=== PATIENT | female | born 1985 | race Caucasian/White ===

== ENCOUNTER 2020-07-31 15:03 | Emergency (ER) | payer OTHER, SELFPAY ==
[2020-07-31 15:05] VITALS: PULSE 107; RESP 18; TEMP 35.7; O2SAT 95; BMI 47.0
--- NOTE | 2020-07-31 15:21 | ED.DCSUM_ITS ---
History of Present Illness Chief Complaint: Shortness of Breath Informant: Patient Narrative: 34-year-old female presenting with shortness of breath. She states she had Covid?19 around and recovered. Over the last couple days she has felt more short of breath when ambulating. She feels more short of breath when she climbs stairs. She denies any chest pain. She was seen as an urgent care televisit but was unable to get a chest x-ray yesterday. Outpatient imaging is closed today. She was referred to the ER for rule out of pneumonia. Patient has no history of DVT/PE. She has no leg pains or calf swelling. She has not had a fever but admits to chills and sweats. No change in taste or smell. Past Medical History - Allergies and Home Meds Allergies/Adverse Reactions: Allergies acetaminophen [From Percocet] Adverse Reaction (Verified 07/31/20 15:04) NEEDS FOLLOW-UP oxycodone [From Percocet] Adverse Reaction (Verified 07/31/20 15:04) NEEDS FOLLOW-UP Penicillins Adverse Reaction (Verified 07/31/20 15:04) NEEDS FOLLOW-UP Tetracyclines Adverse Reaction (Verified 07/31/20 15:04) NEEDS FOLLOW-UP Primary Care Physician: [facility] Doctor,Out of [NON-STAFF] - Prior records reviewed: Yes Past Medical History: - - History of Covid?19 Surgical History: noncontributory Lives: Alone Smoking Status: Unknown if ever smoked Alcohol: None Drugs: None Review of Systems General: Reports: Chills, Sweats. Denies: Malaise Eyes: Denies: Visual changes - bilaterally, Diplopia ENT: Denies: Rhinorrhea, Sore throat Cardiovascular: Denies: Chest pain, Palpitations Respiratory: Reports: Dyspnea, Cough, Dyspnea on exertion Gastrointestinal: Denies: Abdominal pain, Nausea, Vomiting, Diarrhea, Melena, Hematochezia Genitourinary: Denies: Dysuria, Hematuria, Frequency Musculoskeletal: Denies: Back pain, Extremity Pain Skin: Denies: Rash, Wounds Neurological: Denies: Headache, Weakness, Numbness Psych: Denies: Depression, Anxiety Physical Exam Vital Signs/Narrative: Vital Signs Temp Pulse Resp Pulse Ox 07/31/20 15:05 96.3 F L 107 H 18 95 Inital Vital Signs reviewed: Yes General: Well nourished, Well developed, No Acute Distress Head: Normocephalic, Atraumatic Eyes: Perrl, EOMI ENT: Moist mucous membranes, No rhinorrhea Cardiovascular: Regular rhythm, Tachycardia Respiratory: No distress, CTA bilaterally Skin: Normal color, No rash. Negative for: Cyanosis, Diaphoresis Neurological: Alert, Oriented x3, Cranial nerves II-XII grossly intact Psychological: Normal affect, Normal Mood Diagnostic/Tx/Re-eval - Rhythm Strip Rhythm Strip: Sinus Rhythm Rate: 96 - EKG Follow-up EKG Interpretation: Sinus Rhythm, No Acute Injury Pattern - Medical Decision Making 34-year-old female status post Covid?19 infection almost 2 months ago presents with shortness of breath. She was concerned for pneumonia and was sent here by urgent care. Patient's EKG performed on arrival and interpreted by myself shows a sinus rhythm without signs of ischemic change. Chest x-ray as interpreted by myself and agreed with by radiology shows no acute process. Lab work is unremarkable. D-dimer is negative. Opponent is negative. Patient's vital signs are stable and she is afebrile. She is nontoxic-appearing. I think at this time she is safe to be discharged home to follow-up with her regular physician. Patient was started on doxycycline and I did encourage her to finish this as there could possibly be an occult pneumonia. She was amenable to this plan. She be discharged home in stable condition. Impression: 1. Dyspnea ED Disposition - Plan for ED Patient: Disposition: Home or Assisted Living Instructions: ED Dyspnea Referrals: [facility] Doctor,Out of [NON-STAFF] -
--- NOTE | 2020-07-31 15:41 | EKG12_ITS ---
Test Reason : SOB Blood Pressure : / mmHG Vent. Rate : 096 BPM Atrial Rate : 096 BPM P-R Int : 162 ms QRS Dur : 090 ms QT Int : 354 ms P-R-T Axes : 066 030 070 degrees QTc Int : 447 ms Normal sinus rhythm Nonspecific T wave abnormality Abnormal ECG Confirmed by MILENA GONZALEZ, KETTY ([id number]), offline editor BOLIVAR JIMENEZ ([id number]) on 08/03/2020 6:54:34 AM Referred By: ARNALDO Confirmed By:KETTY ABBOTT MD
--- NOTE | 2020-07-31 15:53 | ED.RN ---
UNABLE TO OBTAIN BP IN TRIAGE. CUFF CHANGED. PT REPORTS WANTING TO WAIT A BIT BEFORE OBTAINING BP.
[2020-07-31 16:06] LABS: Absolute Lymphocyte Count 3.37 X10^3/uL (0.83-4.51); Absolute Neutrophil Count 5.3 X10^3/uL (2.0-7.7); Basophil# 0.05 X10^3/uL; Basophil% 0.5 % (0-1); Eosinophil# 0.29 X10^3/uL; Hematocrit 39.6 % (37-47); Hemoglobin 13.3 g/dL (12.0-15.0); Lymphocyte # 3.37 X10^3/ul (4.0); Lymphocyte % 35.1 % (19-41); Mean Corp Hgb Conc 33.6 g/dL (32-36); Mean Corpuscular Volume 89.2 fL (81-99); Mean Platelet Vol. 9.5 fl (6.2-12.0); Monocyte# 0.48 X10^3/uL; NRBC Flagged by Analyzer 0 % (0-5); Neutrophil # 5.33 X10^3/uL (2.7-7.7); Neutrophil % 55.6 % (47-70); Platelet Count 322 K/mm3 (150-450); RBC Distribution Width CV 12.9 % (11.6-14.6); RBC Distribution Width SD 41.9 fl (35.1-43.9); Red Blood Count 4.44 M/mm3 (4.2-5.4); White Blood Count 9.6 K/mm3 (4.4-11.0)
[2020-07-31 16:16] VITALS: BP 153/100; PULSE 97; RESP 20; O2SAT 96
[2020-07-31 16:22] LABS: Anion Gap 6 (5-15); BUN 12 mg/dL (7-18); BUN/Creat Ratio 13.8 RATIO (10-20); Calcium,Total 8.9 mg/dL (8.5-10.1); Chloride 111 mmol/L (98-107); Creatinine, Serum 0.87 mg/dL (0.55-1.02); EST Glomerular Filtration Rate 78 mL/min (>60); Est Glom Filt Rate - Afr Amer 95 mL/min (>60); Estimated Creatinine Clearance 87.77 ml/min; Glucose 120 mg/dL (74-106); Potassium 3.7 mmol/L (3.5-5.1); Sodium Level 143 mmol/L (136-145)
--- NOTE | 2020-07-31 16:34 | RAD_ITS ---
STUDY: X-RAY CHEST REASON FOR EXAM: Female, 34 years old. PT WITH SOB, COUGH, HEADACHE, SORE THROAT. TECHNIQUE: AP COMPARISON: None. FINDINGS: EKG leads project over the chest. The lungs are clear and expanded. There is no demonstrated pleural abnormality. Normal size heart. Normal mediastinum and andressa. Normal visualized pulmonary arteries. Normal visualized aortic arch and descending thoracic aorta. Normal visualized thoracic spine. Normal visualized ribs, clavicles, and shoulders. There is no demonstrated abnormality of the visualized soft tissue structures of the upper abdomen. RAD/Chest 1 View (Portable) IMPRESSION: Nonacute portable x-ray examination of the chest. Electronically Signed: Tor Chan MD (Brooks) at 16:54 EST , Service support ,
[2020-07-31 16:45] LABS: D-Dimer Quantitative (DVT/PE) 0.35 FEU/ug/m (0.27-0.49)
[2020-07-31 17:57] VITALS: BP 162/104; PULSE 100; RESP 20
== END 2020-07-31 17:58 | disposition home or self-care (01) ==
PROVIDERS: Emergency Provider Student in an Organized Health Care Education/Training Program
DX: R06.09 Other forms of dyspnea (principal); Z79.899 Other long term (current) drug therapy; Z86.16 Personal history of COVID-19
CPT/HCPCS: 71045; 80048; 84484; 85025; 85379; 93005; 99284; A4216

== ENCOUNTER 2021-02-10 13:04 | Emergency (ER) | payer OTHER, SELFPAY ==
[2021-02-10 13:05] VITALS: BP 180/127; PULSE 119; RESP 20; TEMP 36.6; O2SAT 96; BMI 49.4
--- NOTE | 2021-02-10 13:39 | EKG12_ITS ---
Test Reason : RASH Blood Pressure : / mmHG Vent. Rate : 099 BPM Atrial Rate : 099 BPM P-R Int : 170 ms QRS Dur : 092 ms QT Int : 360 ms P-R-T Axes : 057 015 054 degrees QTc Int : 462 ms Normal sinus rhythm Nonspecific T wave abnormality Abnormal ECG Confirmed by YASSINE GONZALEZ, ALDEN ([id number]), food expeditor ANDREW SHIELDS ([id number]) on 02/16/2021 1:14:13 PM Referred By: JEROME Confirmed By:ALDEN METZGER MD
[2021-02-10] MEDS: Ketorolac 30 MG/ML Syringe IV (14:07)
[2021-02-10 14:23] LABS: Absolute Lymphocyte Count 2.83 X10^3/uL (0.83-4.51); Absolute Neutrophil Count 6.5 X10^3/uL (2.0-7.7); Basophil# 0.04 X10^3/uL; Basophil% 0.4 % (0-1); Eosinophil# 0.28 X10^3/uL; Eosinophils% 2.7 % (0-5); Hematocrit 40.8 % (37-47); Hemoglobin 13.5 g/dL (12.0-15.0); Lymphocyte # 2.83 X10^3/ul (0.83-4.51); Lymphocyte % 27.7 % (19-41); Mean Corp Hgb Conc 33.1 g/dL (32-36); Mean Corpuscular Hgb 29.6 pg (27.0-32.0); Mean Corpuscular Volume 89.5 fL (81-99); Mean Platelet Vol. 9.6 fl (6.2-12.0); Monocyte# 0.44 X10^3/uL; Monocyte% 4.3 % (0-10); NRBC Flagged by Analyzer 0 % (0-5); Neutrophil # 6.54 X10^3/uL (2.7-7.7); Platelet Count 305 K/mm3 (150-450); RBC Distribution Width CV 12.6 % (11.6-14.6); RBC Distribution Width SD 41.3 fl (35.1-43.9); Red Blood Count 4.56 M/mm3 (4.2-5.4); White Blood Count 10.2 K/mm3 (4.4-11.0)
[2021-02-10 14:46] LABS: AST(SGOT) 21 U/L (15-37); Alanine Aminotransfer ALT/SGPT 32 U/L (13-56); Albumin, Serum 3.4 g/dL (3.2-5.0); Alkaline Phosphatase 100 U/L (45-117); Anion Gap 6 (5-15); BUN 15 mg/dL (7-18); BUN/Creat Ratio 15.9 RATIO (10-20); Calcium,Total 9.3 mg/dL (8.5-10.1); Chloride 104 mmol/L (98-107); Creatinine, Serum 0.94 mg/dL (0.55-1.02); EST Glomerular Filtration Rate 71 mL/min (>60); Est Glom Filt Rate - Afr Amer 86 mL/min (>60); Estimated Creatinine Clearance 83.46 ml/min; Globulin 4.2 g/dL (2.2-4.2); Glucose 120 mg/dL (74-106); Potassium 3.7 mmol/L (3.5-5.1); Protein, Total 7.6 g/dL (6.4-8.2); Sodium Level 137 mmol/L (136-145); Thyroid Stim Hormone (TSH) 1.81 uIU/mL (0.358-3.74)
[2021-02-10 15:08] VITALS: BP 125/77; PULSE 89; RESP 18; O2SAT 97
--- NOTE | 2021-02-10 15:08 | EX.ED.DYSGE1 ---
HPI History of Present Illness Chief Complaint: Rash Detail of Chief Complaint: Diffuse joint pain, rash Informant: patient Onset/Context/Timing Onset: Days Context: Gradual Onset Current Severity: Moderate Maximum Severity: Moderate Narrative Narrative: Patient presents secondary to diffuse joint pain. Patient states that 4 days ago she developed joint pain throughout her body and she has been itching all over. She also reports a loss of balance the last couple days. She states this is typically when she bends over she will lose her balance. Patient has already been on Mobic and added Tylenol to help with pain. Patient started a new medication, Cogentin, yesterday. She states today while sitting and visiting with family she developed a facial rash. The rash is currently improved but she states she still has some facial tingling. She also had brown emesis this morning. Patient does report having Covid in May. She does note that her blood pressure and heart rate are elevated today. [facility] Medical History Anxiety Depression Eating disorder Gastritis IBS (irritable bowel syndrome) PTSD (post-traumatic stress disorder) Home Medications L.acidoph, paracasei,B. lactis 2 cap PO QHS 07/31/20 [History Last Taken Unknown] biotin 5,000 mcg PO DAILY 07/31/20 [History Last Taken Unknown] cholecalciferol (vitamin D3) 2,000 unit PO DAILY 07/31/20 [History Last Taken Unknown] clonazepam 1 mg PO 4X/DAY 07/31/20 [History Last Taken Unknown] d-mannose (bulk) 500 mg PO DAILY 07/31/20 [History Last Taken Unknown] famotidine 20 mg PO BID 07/31/20 [History Last Taken Unknown] fish oil-dha-epa 1 ea PO DAILY 07/31/20 [History Last Taken Unknown] levocetirizine 5 mg PO QHS 07/31/20 [History Last Taken Unknown] lurasidone 100 mg PO QHS 07/31/20 [History Last Taken Unknown] meloxicam 15 mg PO DAILY 07/31/20 [History Last Taken Unknown] modafinil 200 mg PO DAILY 07/31/20 [History Last Taken Unknown] norethindrone-e.estradiol-iron 1 ea PO DAILY 07/31/20 [History Last Taken Unknown] pantoprazole 40 mg PO DAILY 07/31/20 [History Last Taken Unknown] trazodone 150 mg PO QHS 07/31/20 [History Last Taken Unknown] vortioxetine 20 mg PO DAILY 07/31/20 [History Last Taken Unknown] aripiprazole mg 02/10/21 [History Last Taken Unknown] prednisone 60 mg PO DAILY #12 tab 02/10/21 [Rx Last Taken Unknown] Allergy/AdvReac Type Severity Reaction Status Date / Time acetaminophen [From Percocet] AdvReac NEEDS Verified 02/10/21 13:07 FOLLOW-UP oxycodone [From Percocet] AdvReac NEEDS Verified 02/10/21 13:07 FOLLOW-UP Penicillins AdvReac NEEDS Verified 02/10/21 13:07 FOLLOW-UP Tetracyclines AdvReac NEEDS Verified 02/10/21 13:07 FOLLOW-UP Surgical History H/O partial thyroidectomy Social History Smoking Status: Never smoker ROS ROS ED Constitutional Constitutional ED: Denies chills or fever(s) Eyes Eyes: Denies change in vision ENT ENT ED: Denies sore throat Cardiovascular Cardiovascular: Denies chest pain Respiratory/Chest Respiratory/Chest: Denies cough or dyspnea Gastrointestinal Gastrointestinal: Reports vomiting; Denies abdominal pain, diarrhea or nausea Genitourinary Genitourinary ED: Denies dysuria Musculoskeletal Musculoskeletal: Reports arthralgias; Denies back pain Integumentary Reports rash Neurologic Neurologic: Denies headache(s) or weakness Psychiatric Psychiatric: Denies anxiety or depression Endocrine Endocrinology: Denies polydipsia or polyuria Allergic/Immunologic Allergic/Immunologic ED: Denies urticaria EXAM Physical Exam Const Vital Signs: 02/10/21 13:05 02/10/21 15:08 Temperature 97.9 F Temperature Source Temporal Pulse Rate 119 H 89 Respiratory Rate 20 H 18 Blood Pressure 180/127 H 125/77 H Blood Pressure Mean 144 93 Pulse Ox 96 97 Oxygen Delivery Method Room Air Room Air Positive well nourished and well developed General Appearance ED: well developed HEENT Reports normocephalic and head/scalp atraumatic Eyes PERRL and EOMs intact bilaterally Neck supple Chest Wall inspection of chest normal and palpation of chest normal Resp normal respiratory effort and clear to auscultation bilaterally Cardio regular rate and regular rhythm GI normal to inspection, nondistended, normoactive bowel sounds Palpation: soft Extremity normal to inspection Extremity Narrative: No focal joint tenderness or excessive warmth. Neuro oriented x3 and no sensory deficits noted Sensorium / Orientation: alert Motor Exam: strength 5/5 throughout Psych mental status grossly normal Skin no rashes or lesions noted MDM MDM MDM Narrative Medical decision making narrative: Patient was given a dose of Toradol. Labs and EKG are obtained. Lab Data Attestation: I reviewed the patient's lab results. Labs: Laboratory Results - last 24 hr 02/10/21 02/10/21 14:10 14:10 WBC 10.2 RBC 4.56 Hgb 13.5 Hct 40.8 MCV 89.5 MCH 29.6 MCHC 33.1 RDW Std Deviation 41.3 RDW Coeff of Jose 12.6 Plt Count 305 MPV 9.6 Immature Gran % (Auto) 0.900 Neut % (Auto) 64.0 Lymph % (Auto) 27.7 Bollinger % (Auto) 4.3 Eos % (Auto) 2.7 Baso % (Auto) 0.4 Absolute Neuts (auto) 6.5 Absolute Lymphs (auto) 2.83 Nucleated RBC % 0 Sodium 137 Potassium 3.7 Chloride 104 Carbon Dioxide 27.0 Anion Gap 6 BUN 15 Creatinine 0.94 Estim Creat Clear Calc 83.46 Est GFR (MDRD) Af Amer 86 Est GFR (MDRD) Non-Af 71 BUN/Creatinine Ratio 15.9 Glucose 120 H Calcium 9.3 Total Bilirubin 0.30 Direct Bilirubin 0.10 AST 21 ALT 32 Alkaline Phosphatase 100 Total Protein 7.6 Albumin 3.4 Globulin 4.2 TSH 1.81 EKG Initial EKG: Attestation: I personally reviewed and interpreted this EKG as follows: Interpretation: Sinus Rhythm (Sinus at 99 with lateral T wave flattening. No ST change. Study is similar to prior from July 2020.) Treatment and Re-Evaluation Comments:: On repeat evaluation patient reports no significant improvement with Toradol. Repeat vital signs are significantly improved. Test results are discussed with the patient. We will treat her with a burst of steroids to help with the arthralgias. I did advise she contact the physician who ordered her Cogentin and not take this medication until she speaks with them. Discharge Plan Triage Chief Complaint: Rash ED Provider: Whitley Recinos Dx/Rx/DC Orders Clinical Impression: Arthralgia Instructions: ED Arthralgia Prescriptions: New prednisone 20 mg tablet 60 mg PO DAILY Qty: 12 RF: 0 No Action trazodone 50 MG tablet 150 mg PO QHS RF: 0 meloxicam 15 MG tablet 15 mg PO DAILY RF: 0 clonazepam 1 MG tablet 1 mg PO 4X/DAY RF: 0 famotidine 20 MG tablet 20 mg PO BID RF: 0 modafinil 200 MG tablet 200 mg PO DAILY RF: 0 pantoprazole 40 MG tablet 40 mg PO DAILY RF: 0 fish oil-dha-epa 1 EACH capsule 1 ea PO DAILY RF: 0 levocetirizine 5 MG tablet 5 mg PO QHS RF: 0 d-mannose (bulk) 1 GM powder 500 mg PO DAILY RF: 0 cholecalciferol (vitamin D3) 2,000 UNIT capsule 2,000 unit PO DAILY RF: 0 lurasidone 40 MG tablet 100 mg PO QHS RF: 0 norethindrone-e.estradiol-iron 1 EACH tablet,chewable 1 ea PO DAILY RF: 0 vortioxetine 20 MG tablet 20 mg PO DAILY RF: 0 L.acidoph, paracasei,B. lactis 1 EACH capsule 2 cap PO QHS RF: 0 biotin 5,000 MCG tablet,disintegrating 5,000 mcg PO DAILY RF: 0 aripiprazole 2 mg tablet RF: 0 Referrals: ALAN COBB [Other] Activity Restrictions/Additional Instructions: As discussed, please call the doctor who prescribed her Cogentin and relay what happened today. Your vital signs have returned to normal. Lab work is unremarkable. We will place you on a steroid burst to calm down inflammation causing her joint pain. Disposition Disposition: Home, Self Care Discharge Date/Time: 02/10/21 15:21
[2021-02-10] MEDS: predniSONE 20 MG Tablet 60 MG PO (15:18)
== END 2021-02-10 15:21 | disposition home or self-care (01) ==
PROVIDERS: Emergency Provider Emergency Medicine
DX: M25.50 Pain in unspecified joint (principal); R21 Rash and other nonspecific skin eruption; R26.89 Other abnormalities of gait and mobility; R20.2 Paresthesia of skin; K58.9 Irritable bowel syndrome, unspecified; F32.9 Major depressive disorder, single episode, unspecified; F43.10 Post-traumatic stress disorder, unspecified; Z79.1 Long term (current) use of non-steroidal anti-inflammatories (NSAID); Z79.52 Long term (current) use of systemic steroids; Z79.899 Other long term (current) drug therapy; Z86.16 Personal history of COVID-19
CPT/HCPCS: 80048; 80076; 84443; 85025; 93005; 96374; 99283; A4216

== ENCOUNTER 2023-11-21 11:48 | Emergency (ER) | payer OTHER, SELFPAY ==
[2023-11-21 11:48] VITALS: BP 147/94; PULSE 95; RESP 22; TEMP 36.1; O2SAT 92
[2023-11-21 12:43] VITALS: BMI 75.9
--- NOTE | 2023-11-21 12:53 | EDS_ITS ---
HPI History of Present Illness Chief Complaint: Neuro S/Sx Narrative Narrative: 38-year-old female presenting for evaluation. She states she works for [employer] and is in intensive outpatient therapy which she sees a nurse practitioner for regularly. She states that on Saturday she had her Trintellix increased from 5 to 10 mg in the morning. She states that on Saturday her Abilify was changed from 5 mg daily to 5 mg twice daily and trazodone was added to her sleep regimen 25 mg at night. She states that 1 time she took 50 mg of trazodone and slept for 24 hours. Patient states her primary care provider also changed her Neurontin last week and she went from 300 in the morning, afternoon, evening to 300 in the morning, 400 in the afternoon and 400 in the evening. Saturday and Saturday she slept most of the day and she was out of it. She was slurring per her mother who is an RN. She did not have any other deficits. Her mother felt like she was overmedicated. When she was speaking to her nurse practitioner again she stated that she needed to come to the ER for a TIA rule out given her symptoms. The patient herself states that she is very sensitive to medication changes and does not feel she had a TIA but she is not allowed to not follow instructions in the IOP otherwise she will be immediately kicked out of it. She also states she had lab work done this week already which was unremarkable. She went back to her old medication regimen yesterday and now her symptoms are improved. [facility] Medical History Anxiety Depression Eating disorder Gastritis IBS (irritable bowel syndrome) PTSD (post-traumatic stress disorder) Home Medications L.acidoph, paracasei,B. lactis 10 billion cell capsule 2 cap PO QHS 07/31/20 [History Last Taken Unknown] biotin 5,000 mcg disintegrating tablet 5,000 mcg PO DAILY 07/31/20 [History Last Taken Unknown] cholecalciferol (vitamin D3) 50 mcg (2,000 unit) capsule 2,000 unit PO DAILY 07/31/20 [History Last Taken Unknown] clonazepam 1 mg tablet 1 mg PO 4X/DAY 07/31/20 [History Last Taken Unknown] d-mannose (bulk) 99 % powder 500 mg PO DAILY 07/31/20 [History Last Taken Unknown] famotidine 20 mg tablet 20 mg PO BID 07/31/20 [History Last Taken Unknown] fish oil-dha-epa 1,200 mg-144 mg-216 mg capsule 1 ea PO DAILY 07/31/20 [History Last Taken Unknown] levocetirizine 5 mg tablet 5 mg PO QHS 07/31/20 [History Last Taken Unknown] lurasidone 40 mg tablet 100 mg PO QHS 07/31/20 [History Last Taken Unknown] meloxicam 15 mg tablet 15 mg PO DAILY 07/31/20 [History Last Taken Unknown] modafinil 200 mg tablet 200 mg PO DAILY 07/31/20 [History Last Taken Unknown] norethindrone 1 mg-e. estradiol 20 mcg (24)-iron 75 mg (4) chew tablet 1 ea PO DAILY 07/31/20 [History Last Taken Unknown] pantoprazole 40 mg tablet,delayed release 40 mg PO DAILY 07/31/20 [History Last Taken Unknown] trazodone 50 mg tablet 150 mg PO QHS 07/31/20 [History Last Taken Unknown] vortioxetine 20 mg tablet 20 mg PO DAILY 07/31/20 [History Last Taken Unknown] aripiprazole 2 mg tablet mg 02/10/21 [History Last Taken Unknown] prednisone 20 mg tablet 60 mg (3 x 20 mg) PO DAILY #12 tabs 02/10/21 [Rx Last Taken Unknown] Allergy/AdvReac Type Severity Reaction Status Date / Time acetaminophen [From Percocet] AdvReac NEEDS Verified 02/10/21 13:07 FOLLOW-UP oxycodone [From Percocet] AdvReac NEEDS Verified 02/10/21 13:07 FOLLOW-UP Tetracyclines AdvReac NEEDS Verified 02/10/21 13:07 FOLLOW-UP Surgical History H/O partial thyroidectomy Social History Smoking Status: Never smoker ROS ROS ED Constitutional Constitutional ED: Denies chills, fever(s) or sweats Eyes Eyes: Denies blurry vision or change in vision ENT ENT ED: Denies ear pain or sore throat Cardiovascular Cardiovascular: Denies chest pain, palpitations or racing heartbeat Respiratory/Chest Respiratory/Chest: Denies cough, dyspnea or sputum Gastrointestinal Gastrointestinal: Denies abdominal pain, constipation, diarrhea, nausea or vomiting Genitourinary Genitourinary ED: Denies dysuria, hematuria or urinary frequency Musculoskeletal Musculoskeletal: Denies arthralgias, myalgias or neck pain Integumentary Denies abscess, Abrasions or rash Neurologic Neurologic: Reports other Details: Slurred speech ; Denies headache(s), paresthesias or weakness Psychiatric Psychiatric: Denies anxiety, depression, suicidal ideation or suicidal thoughts Endocrine Endocrinology: Denies polydipsia or polyuria EXAM Physical Exam Const Vital Signs: 11/21/23 11:48 Temperature 97 F L Temperature Source Temporal Pulse Rate 95 Respiratory Rate 22 H Blood Pressure 147/94 H Blood Pressure Mean 111 Pulse Ox 92 Oxygen Delivery Method Room Air Positive well nourished General Appearance ED: NAD HEENT Reports moist mucous membranes Eyes PERRL and EOMs intact bilaterally Neck no lymphadenopathy Resp normal respiratory effort and clear to auscultation bilaterally Auscultation: Negative for rales or rhonchi Cardio regular rate and regular rhythm Extremity normal to inspection Neuro oriented x3, CN's II-XII intact bilaterally and no sensory deficits noted Sensorium / Orientation: alert Motor Exam: strength 5/5 throughout Skin no rashes or lesions noted and no wounds MDM MDM MDM Narrative Medical decision making narrative: Patient presenting with most likely a drug reaction. She does not believe she had a TIA or stroke. She states she is very sensitive to medication changes and she had several over the last 4 days. However she does state if she does not follow the rules of [facility] that she will be kicked out immediately. She is alert and awake and in no acute distress. Vital signs are stable. She does not have any focal neurologic deficits. NIH stroke score 0. She reports she already had labs that were normal and I do not believe she needs any imaging or workup here and she does agree. Her mother is in the room and states she felt she was overmedicated as well. At this time I feel the patient stable for discharge home and return precautions were discussed. Impression: 1. Polypharmacy 2. Medication side effect Discharge Plan Triage Chief Complaint: Neuro S/Sx ED Provider: Andre Leslie Dx/Rx/DC Orders Instructions: ED Drug Reaction, Other Prescriptions: No Action trazodone 50 MG tablet 150 mg PO QHS meloxicam 15 MG tablet 15 mg PO DAILY clonazepam 1 MG tablet 1 mg PO 4X/DAY famotidine 20 MG tablet 20 mg PO BID modafinil 200 MG tablet 200 mg PO DAILY pantoprazole 40 MG tablet 40 mg PO DAILY fish oil-dha-epa 1 EACH capsule 1 ea PO DAILY levocetirizine 5 MG tablet 5 mg PO QHS d-mannose (bulk) 1 GM powder 500 mg PO DAILY cholecalciferol (vitamin D3) 2,000 UNIT capsule 2,000 unit PO DAILY lurasidone 40 MG tablet 100 mg PO QHS norethindrone-e.estradiol-iron 1 EACH tablet,chewable 1 ea PO DAILY vortioxetine 20 MG tablet 20 mg PO DAILY L.acidoph, paracasei,B. lactis 1 EACH capsule 2 cap PO QHS biotin 5,000 MCG tablet,disintegrating 5,000 mcg PO DAILY aripiprazole 2 mg tablet prednisone 20 mg tablet 60 mg PO DAILY Qty: 12 0RF Primary Care Provider: ALAN COBB Referrals: ALAN COBB [Other] Disposition Disposition: Home, Self Care
[2023-11-21 13:10] VITALS: BP 140/88; PULSE 90; RESP 18; TEMP 36.6; O2SAT 98
[2023-11-21 13:11] VITALS: BMI 75.9
== END 2023-11-21 13:16 | disposition home or self-care (01) ==
PROVIDERS: Emergency Provider Student in an Organized Health Care Education/Training Program; Visit Provider Student in an Organized Health Care Education/Training Program
DX: R47.81 Slurred speech (principal); T50.915A Adverse effect of multiple unspecified drugs, medicaments and biological substances, initial encounter; K58.9 Irritable bowel syndrome, unspecified; F32.A Depression, unspecified; F41.9 Anxiety disorder, unspecified; Z79.899 Other long term (current) drug therapy
CPT/HCPCS: 99282

== ENCOUNTER 2024-01-27 11:06 | Emergency (ER) | payer OTHER, SELFPAY ==
[2024-01-27 11:07] VITALS: BP 144/78; PULSE 88; RESP 20; TEMP 35.7; O2SAT 92
[2024-01-27 11:09] VITALS: BP 138/77; PULSE 89; RESP 16; TEMP 35.7; O2SAT 94
--- NOTE | 2024-01-27 11:40 | EDS_ITS ---
HPI History of Present Illness Chief Complaint: Shortness of Breath Informant: patient Onset/Context/Timing Onset: Yesterday Context: sudden Timing: Continuous Quality: Positive for Dyspnea on exertion Worsened by: Exertion and Lying flat Relieved by: Nothing Associated Symptoms subjective and chills; Negative for cough, rhinorrhea, post nasal drip, ear pain, fever, sore throat, sweats, clear sputum, white sputum, yellow sputum or green sputum Chest Pain: Positive for None Narrative Narrative: Patient presents with shortness of breath that began yesterday. Patient states it began rather suddenly. Patient states her breathing is worse with any exertion. Patient states her breathing has been constant. Patient states her breathing is also worse when she lays flat. Patient states nothing seems to help with her breathing. Patient states her blood pressure will have been low. Patient states she has been feeling weak and dizzy. Patient admits to some subjective chills but denies any fevers. Patient admits to some nausea. Patien t also admits to some urinary frequency. [facility] Medical History (Updated 01/27/24 @ 15:[address] Charles Davis, DO) PTSD (post-traumatic stress disorder) Anxiety Depression Eating disorder Gastritis IBS (irritable bowel syndrome) Home Medications ?Medication ?Instructions ?Recorded ?Last Taken ?Type L.acidoph, paracasei,B. lactis 10 2 cap PO QHS 07/31/20 Unknown History billion cell capsule biotin 5,000 mcg disintegrating 5,000 mcg PO DAILY 07/31/20 Unknown History tablet cholecalciferol (vitamin D3) 50 2,000 unit PO DAILY 07/31/20 Unknown History mcg (2,000 unit) capsule clonazepam 1 mg tablet 1 mg PO 4X/DAY 07/31/20 Unknown History d-mannose (bulk) 99 % powder 500 mg PO DAILY 07/31/20 Unknown History famotidine 20 mg tablet 20 mg PO BID 07/31/20 Unknown History fish oil-dha-epa 1,200 mg-144 1 ea PO DAILY 07/31/20 Unknown History mg-216 mg capsule levocetirizine 5 mg tablet 5 mg PO QHS 07/31/20 Unknown History lurasidone 40 mg tablet 100 mg PO QHS 07/31/20 Unknown History meloxicam 15 mg tablet 15 mg PO DAILY 07/31/20 Unknown History modafinil 200 mg tablet 200 mg PO DAILY 07/31/20 Unknown History norethindrone 1 mg-e. estradiol 20 1 ea PO DAILY 07/31/20 Unknown History mcg (24)-iron 75 mg (4) chew tablet pantoprazole 40 mg tablet,delayed 40 mg PO DAILY 07/31/20 Unknown History release trazodone 50 mg tablet 150 mg PO QHS 07/31/20 Unknown History vortioxetine 20 mg tablet 20 mg PO DAILY 07/31/20 Unknown History aripiprazole 2 mg tablet mg 02/10/21 Unknown History prednisone 20 mg tablet 60 mg (3 x 20 mg) PO DAILY #12 tabs 02/10/21 Unknown Rx Allergy/AdvReac Type Severity Reaction Status Date / Time acetaminophen (From Percocet) AdvReac NEEDS Verified 02/10/21 13:07 FOLLOW-UP oxycodone (From Percocet) AdvReac NEEDS Verified 02/10/21 13:07 FOLLOW-UP Tetracyclines AdvReac NEEDS Verified 02/10/21 13:07 FOLLOW-UP Surgical History (Updated 01/27/24 @ 14:[address] Charles Davis DO) Hx of shoulder surgery H/O partial thyroidectomy Social History Smoking Status: Never smoker ROS ROS ED Constitutional Constitutional ED: Reports chills; Denies fever(s) Eyes Eyes: Denies blurry vision or change in vision ENT ENT ED: Denies rhinorrhea or sore throat Cardiovascular Cardiovascular: Denies chest pain or palpitations Respiratory/Chest Respiratory/Chest: Reports dyspnea; Denies cough Gastrointestinal Gastrointestinal: Reports nausea; Denies vomiting Genitourinary Genitourinary ED: Reports urinary frequency; Denies dysuria or hematuria Musculoskeletal Musculoskeletal: Denies back pain or neck pain Integumentary Denies abscess or rash Neurologic Neurologic: Reports headache(s); Denies weakness Allergic/Immunologic Allergic/Immunologic ED: Denies mouth swelling or urticaria EXAM Physical Exam Const Vital Signs: 01/27/24 11:07 01/27/24 11:09 01/27/24 11:14 Temperature 96.3 F L 96.3 F L Temperature Source Temporal Oral Pulse Rate 88 89 Respiratory Rate 20 H 16 Respiratory Effort Normal Non-Labored Respiratory Depth Normal Respiratory Pattern Normal Blood Pressure 144/78 H 138/77 H Blood Pressure Mean 100 97 Pulse Ox 92 94 Oxygen Delivery Method Room Air Room Air Room Air 01/27/24 11:54 01/27/24 13:06 Temperature Temperature Source Pulse Rate 84 91 Respiratory Rate 16 18 Respiratory Effort Respiratory Depth Respiratory Pattern Normal Blood Pressure 146/77 H Blood Pressure Mean 100 Pulse Ox 93 Oxygen Delivery Method Room Air Positive well nourished and well developed General Appearance ED: well developed and NAD HEENT Reports moist mucous membranes Neck supple and no JVD Resp normal respiratory effort and clear to auscultation bilaterally Cardio regular rate and regular rhythm GI non-tender and non-distended Palpation: soft Extremity General Extremety ED: Negative for edema or tenderness General Extremity: Negative for edema Neuro oriented x3, CN's II-XII intact bilaterally and no sensory deficits noted Hilbert Coma Scale: document GCS findings Spontaneous Obeys Commands Oriented 15 Sensorium / Orientation: alert Speech: speech normal Motor Exam: strength 5/5 throughout Psych mental status grossly normal MDM MDM MDM Narrative Medical decision making narrative: Differential diagnosis includes pneumonia, pulmonary embolism, cardiac dysrhythmia, cardiac ischemia, and viral infection. Chest x-ray will be obta ined to assess for pneumonia and pneumothorax. CBC will be obtained to assess for leukocytosis and anemia. Basic metabolic profile will be obtained to assess for electrolyte abnormality and renal function. High-sensitivity troponin will be obtained to assess for cardiac ischemia. D-dimer will be obtained to assess for pulmonary embolism. COVID-19, influenza, and RSV PCR will be obtained to as sess for viral illness. Lab Data Attestation: I reviewed the patient's lab results. Lab results narrative: CBC was reviewed. White blood cell count was slightly elevated at 11.5. The remainder was within normal limits. Basic metabolic profile was reviewed and was essentially within normal limits. D-dimer was reviewed and was normal at less than 0.27. High-sensitivity troponin was reviewed and was normal at 6. COVID-19 PCR was reviewed and was negative. Influenza PCR was reviewed and was negative for influenza A and influenza B. RSV PCR was reviewed and was negative. Labs: Laboratory Results - last 24 hr 01/27/24 12:05 WBC 11.5 H RBC 4.89 Hgb 13.8 Hct 42.5 MCV 86.9 MCH 28.2 MCHC 32.5 RDW Std Deviation 46.2 H RDW Coeff of Jose 14.5 Plt Count 342 MPV 10.0 Immature Gran % (Auto) 0.700 Neut % (Auto) 68.6 Lymph % (Auto) 25.9 [place] % (Auto) 4.6 Eos % (Auto) 0.0 Baso % (Auto) 0.2 Absolute Neuts (auto) 7.9 H Absolute Lymphs (auto) 2.98 Nucleated RBC % 0 D-Dimer Quant (PE/DVT) < 0.27 L Sodium 135 L Potassium 4.0 Chloride 104 Carbon Dioxide 25.0 Anion Gap 6 BUN 20 H Creatinine 0.69 Est GFR (MDRD) Af Amer 122 Est GFR (MDRD) Non-Af 101 BUN/Creatinine Ratio 29.0 H Glucose 95 Calcium 9.2 Troponin I High Sens 6 Radiography Chest X-Ray - ED: 2 View, Read by ED Physician, Read by Radiologist and No Acute Disease Diagnostic Testing: Clinical Impression(s) from Imaging Studies Chest X-Ray 01/27/24 12:15 IMPRESSION: Normal x-ray examination of the chest. Electronically Signed: Florencio Diamond MD at 12:35 EDT , PA and lateral chest x-ray was obtained. There are 2 views. On my independent interpretation, lung bower are clear. There is normal cardiac silhouette. Bony thorax is normal. There is no acute process noted. Radiologist also interpreted the x-ray and agrees. Treatment and Re-Evaluation :: Patient was given a DuoNeb aerosol here. Patient is feeling better on reevaluation. Patient was advised of her findings. Patient was instructed to follow-up with her primary care physician in 5 to 7 days. Patient was instructed to return if worse in any way. Patient understood and was agreeable with the plan. All questions were answered. Discharge Plan Triage Chief Complaint: Shortness of Breath ED Provider: Charles Davis Dx/Rx/DC Orders Clinical Impression: Dyspnea, General weakness Instructions: ED Dyspnea Prescriptions: No Action trazodone 50 MG tablet 150 mg PO QHS meloxicam 15 MG tablet 15 mg PO DAILY clonazepam 1 MG tablet 1 mg PO 4X/DAY famotidine 20 MG tablet 20 mg PO BID modafinil 200 MG tablet 200 mg PO DAILY pantoprazole 40 MG tablet 40 mg PO DAILY fish oil-dha-epa 1 EACH capsule 1 ea PO DAILY levocetirizine 5 MG tablet 5 mg PO QHS d-mannose (bulk) 1 GM powder 500 mg PO DAILY cholecalciferol (vitamin D3) 2,000 UNIT capsule 2,000 unit PO DAILY lurasidone 40 MG tablet 100 mg PO QHS norethindrone-e.estradiol-iron 1 EACH tablet,chewable 1 ea PO DAILY vortioxetine 20 MG tablet 20 mg PO DAILY L.acidoph, paracasei,B. lactis 1 EACH capsule 2 cap PO QHS biotin 5,000 MCG tablet,disintegrating 5,000 mcg PO DAILY aripiprazole 2 mg tablet prednisone 20 mg tablet 60 mg PO DAILY Qty: 12 0RF Primary Care Provider: TERRI YOUSIF Referrals: TERRI YOUSIF [Other] - 5-7 Days NOT,DEFINED [Non-Staff] - Print Language: Ukrainian Disposition Disposition: Home, Self Care
[2024-01-27] MEDS: Ipratropium/Albuterol Sulfate 3 ML AMPUL.NEB INHALATION (11:52)
[2024-01-27 11:54] VITALS: PULSE 84; RESP 16
--- NOTE | 2024-01-27 12:15 | RAD_ITS ---
STUDY: X-RAY CHEST REASON FOR EXAM: Female, 38 years old. Dyspnea TECHNIQUE: PA and lateral views of the chest. COMPARISON: 07/31/2020 FINDINGS: The lungs are clear and expanded. There is no demonstrated pleural abnormality. Normal size heart. Normal mediastinum and andressa. Normal visualized pulmonary arteries. Normal visualized aortic arch and descending thoracic aorta. Normal visualized thoracic spine. Normal visualized ribs, clavicles, and shoulders. There is no demonstrated abnormality of the visualized soft tissue structures of the upper abdomen. RAD/Chest PA and Lateral IMPRESSION: Normal x-ray examination of the chest. Electronically Signed: Florencio Diamond MD at 12:35 EDT ,
[2024-01-27 12:19] LABS: Absolute Lymphocyte Count 2.98 X10^3/uL (0.83-4.51); Absolute Neutrophil Count 7.9 X10^3/uL (2.0-7.7); Basophil# 0.02 X10^3/uL; Basophil% 0.2 % (0-1); Hematocrit 42.5 % (37-47); Hemoglobin 13.8 g/dL (12.0-15.0); Lymphocyte # 2.98 X10^3/ul (0.83-4.51); Lymphocyte % 25.9 % (19-41); Mean Corp Hgb Conc 32.5 g/dL (32-36); Mean Corpuscular Hgb 28.2 pg (27.0-32.0); Mean Corpuscular Volume 86.9 fL (81-99); Monocyte# 0.53 X10^3/uL; Monocyte% 4.6 % (0-10); NRBC Flagged by Analyzer 0 % (0-5); Neutrophil # 7.89 X10^3/uL (2.7-7.7); Neutrophil % 68.6 % (47-70); Platelet Count 342 K/mm3 (150-450); RBC Distribution Width CV 14.5 % (11.6-14.6); RBC Distribution Width SD 46.2 fl (35.1-43.9); Red Blood Count 4.89 M/mm3 (4.2-5.4); White Blood Count 11.5 K/mm3 (4.4-11.0)
[2024-01-27 12:35] LABS: D-Dimer Quantitative (DVT/PE) < 0.27 FEU/ug/m (0.27-0.49)
[2024-01-27 12:53] LABS: Anion Gap 6 (5-15); BUN 20 mg/dL (7-18); Calcium,Total 9.2 mg/dL (8.5-10.1); Chloride 104 mmol/L (98-107); Creatinine, Serum 0.69 mg/dL (0.55-1.02); EST Glomerular Filtration Rate 101 mL/min (>60); Est Glom Filt Rate - Afr Amer 122 mL/min (>60); Glucose 95 mg/dL (74-106); Sodium Level 135 mmol/L (136-145); Troponin-I HS 6 pg/mL (3.0-54.0)
[2024-01-27 13:06] VITALS: BP 146/77; PULSE 91; RESP 18; O2SAT 93
[2024-01-27 16:07] VITALS: BP 141/71; PULSE 88; RESP 18; TEMP 36.7; O2SAT 96
== END 2024-01-27 16:08 | disposition home or self-care (01) ==
PROVIDERS: Emergency Provider Emergency Medicine; Visit Provider Emergency Medicine
DX: R06.00 Dyspnea, unspecified (principal); R53.1 Weakness; R35.0 Frequency of micturition; R68.83 Chills (without fever); E89.0 Postprocedural hypothyroidism; F41.9 Anxiety disorder, unspecified; F32.A Depression, unspecified; Z79.899 Other long term (current) drug therapy
CPT/HCPCS: 71046; 80048; 84484; 85025; 85379; 87631; 94640; 99283

== ENCOUNTER 2024-11-21 11:44 | Emergency (ER) | payer OTHER, SELFPAY ==
[2024-11-21 11:44] VITALS: BP 205/94; PULSE 102; RESP 24; TEMP 36.9; O2SAT 98
[2024-11-21 11:47] VITALS: O2SAT 96
--- NOTE | 2024-11-21 11:59 | RAD_ITS ---
EXAM: XR Chest, 2 Views CLINICAL INDICATION: SOB TECHNIQUE: Frontal and lateral views of the chest. COMPARISON: No relevant prior studies available. FINDINGS: LUNGS AND PLEURAL SPACES: Unremarkable. No consolidation. No pneumothorax. HEART: Unremarkable. No cardiomegaly. MEDIASTINUM: Unremarkable. Normal mediastinal contour. BONES/JOINTS: Unremarkable. No acute fracture. RAD/Chest PA and Lateral IMPRESSION: No acute cardiopulmonary process. Reading Location: [id number]
--- NOTE | 2024-11-21 11:59 | EKG12_ITS ---
Test Reason : Blood Pressure : */* mmHG Vent. Rate : 92 BPM Atrial Rate : 92 BPM P-R Int : 168 ms QRS Dur : 92 ms QT Int : 350 ms P-R-T Axes : 71 52 80 degrees QTcB Int : 432 ms Normal sinus rhythm Normal ECG Confirmed by Chris Juarez ([id number]), telegraph editor ANDREW SHIELDS ([id number]) on 11/23/2024 9:03:49 AM Referred By: Confirmed By: Chris Juarez
--- NOTE | 2024-11-21 12:00 | ED.VIS.DYS ---
HPI History of Present Illness Chief Complaint: Asthma Informant: patient Narrative Narrative: 47-year-old female presenting with shortness of breath that she thinks felt like her asthma and got worse yesterday which was the first day that her doctor had her change her Trelegy over to Advair because they wanted her to have a higher dose of inhaled corticosteroid. 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 She is getting a new nebulizer soon the meantime she has been using an inhaler since yesterday felt like it did not help but she did use it just before getting here. She states her legs felt like Jell-O but she denies any edema or orthopnea, and her blood pressure is very high when she arrived here in the ER, and she states that her sister and nurse practitioner wanted her to come to the ER to get evaluated for cardiac issues. [facility] Medical History (Updated 11/21/24 @ 13:[address] Mazin Simpson MD) Obesity Asthma PTSD (post-traumatic stress disorder) Anxiety Depression Eating disorder Gastritis IBS (irritable bowel syndrome) Home Medications ?Medication ?Instructions ?Recorded ?Last Taken ?Type L.acidoph,paracasei,B.animalis 10 2 cap PO QHS 07/31/20 Unknown History billion cell capsule biotin 5,000 mcg disintegrating 5,000 mcg PO DAILY 07/31/20 Unknown History tablet cholecalciferol (vitamin D3) 50 2,000 unit PO DAILY 07/31/20 Unknown History mcg (2,000 unit) capsule clonazepam 1 mg tablet 1 mg PO 4X/DAY 07/31/20 Unknown History d-mannose (bulk) 99 % powder 500 mg PO DAILY 07/31/20 Unknown History famotidine 20 mg tablet 20 mg PO BID 07/31/20 Unknown History fish oil-dha-epa 1,200 mg-144 1 ea PO DAILY 07/31/20 Unknown History mg-216 mg capsule levocetirizine 5 mg tablet 5 mg PO QHS 07/31/20 Unknown History lurasidone 40 mg tablet 100 mg PO QHS 07/31/20 Unknown History meloxicam 15 mg tablet 15 mg PO DAILY 07/31/20 Unknown History modafinil 200 mg tablet 200 mg PO DAILY 07/31/20 Unknown History norethindrone 1 mg-e. estradiol 20 1 ea PO DAILY 07/31/20 Unknown History mcg (24)-iron 75 mg (4) chew tablet pantoprazole 40 mg tablet,delayed 40 mg PO DAILY 07/31/20 Unknown History release trazodone 50 mg tablet 150 mg PO QHS 07/31/20 Unknown History vortioxetine 20 mg tablet 20 mg PO DAILY 07/31/20 Unknown History prednisone 20 mg tablet 60 mg (3 x 20 mg) PO DAILY #12 tabs 02/10/21 Unknown Rx aripiprazole 5 mg tablet PO 11/21/24 Unknown History fluticasone 500 mcg-salmeterol 50 inhalation 11/21/24 Unknown History mcg/dose blistr powdr for inhalation fluticasone fur. 200 mcg-umeclid 1 ea inhalation DAILY 11/21/24 Unknown History 62.5 mcg-vilant 25 mcg inhalat.powder (Trelegy Ellipta) gabapentin 400 mg capsule 400 mg PO TID 11/21/24 Unknown History levalbuterol HCl 0.63 mg/3 mL mg inhalation 11/21/24 Unknown History solution for nebulization levalbuterol tartrate 45 inhalation 11/21/24 Unknown History mcg/actuation aerosol inhaler montelukast 10 mg tablet 10 mg PO DAILY 11/21/24 Unknown History tezepelumab-ekko 210 mg/1.91 mL mg subcut 11/21/24 Unknown History (110 mg/mL) subcutaneous pen injector (Tezspire) Allergy/AdvReac Type Severity Reaction Status Date / Time acetaminophen (From Percocet) AdvReac NEEDS Verified 11/21/24 11:44 FOLLOW-UP oxycodone (From Percocet) AdvReac NEEDS Verified 11/21/24 11:44 FOLLOW-UP Tetracyclines AdvReac NEEDS Verified 11/21/24 11:44 FOLLOW-UP Surgical History (Updated 01/27/24 @ 14:[address] Charles Davis, DO) Hx of shoulder surgery H/O partial thyroidectomy Social History Smoking Status: Never smoker ROS ROS ED Constitutional Constitutional ED: Denies chills or fever(s) Eyes Eyes: Denies change in vision or diplopia ENT ENT ED: Denies rhinorrhea or sore throat Cardiovascular Cardiovascular: Denies chest pain, orthopnea or palpitations Respiratory/Chest Respiratory/Chest: Reports dyspnea and dyspnea on exertion; Denies cough or orthopnea Gastrointestinal Gastrointestinal: Denies abdominal pain, diarrhea, nausea or vomiting Genitourinary Genitourinary ED: Denies dysuria or hematuria Musculoskeletal Musculoskeletal: Denies back pain or neck pain Integumentary Denies abscess or rash Neurologic Neurologic: Denies headache(s), paresthesias or weakness Psychiatric Psychiatric: Denies suicidal thoughts EXAM Physical Exam Const Vital Signs: 11/21/24 11:44 11/21/24 11:47 11/21/24 11:59 Temperature 98.4 F Temperature Source Oral Pulse Rate 102 H Respiratory Rate 24 H Respiratory Effort Normal Non-Labored Respiratory Depth Normal Respiratory Pattern Normal Blood Pressure 205/94 H Blood Pressure Mean 131 Pulse Ox 98 Oxygen Delivery Method Room Air Room Air Room Air 11/21/24 14:00 11/21/24 14:00 Temperature Temperature Source Pulse Rate 81 Respiratory Rate 18 Respiratory Effort Respiratory Depth Respiratory Pattern Blood Pressure 131/81 H 131/81 H Blood Pressure Mean 97 97 Pulse Ox 98 Oxygen Delivery Method Room Air Positive well nourished, well developed and obese General Appearance ED: well developed and NAD Nutritional Appearance: obese HEENT Reports moist mucous membranes normocephalic and atraumatic Eyes PERRL and EOMs intact bilaterally Neck full ROM, supple and no meningeal signs Resp normal respiratory effort and clear to auscultation bilaterally Resp Narrative: Conversive in full sentences Cardio regular rate, regular rhythm and no murmurs GI non-tender and non-distended Auscultation: normoactive bowel sounds Palpation: soft Back/Spine no CVA tenderness General Back: other FROM Extremity normal to inspection General Extremety ED: Negative for edema, pulses abnormal or tenderness General Extremity: Negative for edema or pulses abnormal Neuro oriented x3, CN's II-XII intact bilaterally and no sensory deficits noted Sensorium / Orientation: awake and alert Speech: speech normal Motor Exam: strength 5/5 throughout Psych mental status grossly normal Skin no rashes or lesions noted and no wounds MDM MDM MDM Narrative Medical decision making narrative: Given the patient's request I think reasonable to perform cardiac testing and a chest x-ray as well as a D-dimer given her lungs are clear. All of this was normal. Her initial troponin is less than 6 and her proBNP is less than 36, both low off the chart repeats are not indicated or necessary. Chest x-ray 2 views of my interpretation are normal radiology in agreement. Patient is doing well is concerned about her high blood pressure, after observing her for an hour or 2 we repeated this. It is 131/81. Patient states because of her adrenal insufficiency, she was told not to take prednisone unless she really needed it. I do not think she really needs it right now. In addition she states that she has a lot of anxiety and she does her albuterol inhaler more than twice a day she has panic attacks. Given all of this I would not change her treatment right now except today would consider going back on her Trelegy throughout the weekend until she talks to her motel food service supervisor afterwards, and I advised her to use her albuterol as needed in order for her to be able to breathe, assuming that her symptoms are related to her asthma. That and she will need follow-up for repeat blood pressure check after the weekend as well and she is in agreement with that plan. History & Record Review Discussion w/independent historian: Patient Lab Data Attestation: I reviewed the patient's lab results. Labs: Laboratory Results - last 24 hr 11/21/24 12:35 WBC 11.8 H RBC 4.24 Hgb 12.7 Hct 37.8 MCV 89.2 MCH 30.0 MCHC 33.6 RDW Std Deviation 43.3 RDW Coeff of Jose 13.2 Plt Count 318 MPV 9.6 Immature Gran % (Auto) 0.900 Neut % (Auto) 70.1 H Lymph % (Auto) 21.9 [place] % (Auto) 4.7 Eos % (Auto) 1.9 Baso % (Auto) 0.5 Absolute Neuts (auto) 8.3 H Absolute Lymphs (auto) 2.59 Nucleated RBC % 0 D-Dimer Quant (PE/DVT) < 0.27 L Sodium 138 Potassium 4.0 Chloride 101 Carbon Dioxide 27.0 Anion Gap 10 BUN 15 Creatinine 0.74 Est GFR (MDRD) Non-Af 104 BUN/Creatinine Ratio 19.8 Glucose 105 H Calcium 9.2 Troponin T High Sens < 6 NT pro BNP II < 36 Radiography Diagnostic Testing: Clinical Impression(s) from Imaging Studies Chest X-Ray 11/21/24 11:59 IMPRESSION: No acute cardiopulmonary process. Reading Location: [facility] Rhythm Strip Rhythm Strip: Sinus Rhythm Rate: 90 Ectopy: None EKG Initial EKG: Attestation: I personally reviewed and interpreted this EKG as follows: Interpretation: Sinus Rhythm and No Acute Injury Pattern Comments: Nml axis & intervals; nml EKG Discharge Plan Triage Chief Complaint: Asthma ED Provider: Mazin Simpson Dx/Rx/DC Orders Clinical Impression: Acute asthma exacerbation, Episode of hypertension Instructions: Asthma Prescriptions: No Action trazodone 50 MG tablet 150 mg PO QHS meloxicam 15 MG tablet 15 mg PO DAILY clonazepam 1 MG tablet 1 mg PO 4X/DAY famotidine 20 MG tablet 20 mg PO BID modafinil 200 MG tablet 200 mg PO DAILY pantoprazole 40 MG tablet 40 mg PO DAILY fish oil-dha-epa 1 EACH capsule 1 ea PO DAILY levocetirizine 5 MG tablet 5 mg PO QHS d-mannose (bulk) 1 GM powder 500 mg PO DAILY cholecalciferol (vitamin D3) 2,000 UNIT capsule 2,000 unit PO DAILY lurasidone 40 MG tablet 100 mg PO QHS norethindrone-e.estradiol-iron 1 EACH tablet,chewable 1 ea PO DAILY vortioxetine 20 MG tablet 20 mg PO DAILY L.acidoph,paracasei,B.animalis 1 EACH capsule 2 cap PO QHS biotin 5,000 MCG tablet,disintegrating 5,000 mcg PO DAILY prednisone 20 mg tablet 60 mg PO DAILY Qty: 12 0RF aripiprazole 5 mg tablet PO levalbuterol HCl 0.63 mg/3 mL solution for nebulization INHALATION Patient Comments: [NO ORIGINAL SIG] gabapentin 400 mg capsule 400 mg PO TID fluticasone propion-salmeterol 500-50 mcg/dose blister with device INHALATION Patient Comments: [NO ORIGINAL SIG] montelukast 10 mg tablet 10 mg PO DAILY levalbuterol tartrate 45 mcg/actuation HFA aerosol inhaler inhalation Trelegy Ellipta 200-62.5-25 mcg blister with device 1 ea inhalation DAILY Tezspire 210 mg/1.91 mL (110 mg/mL) pen injector SUBCUT Patient Comments: [NO ORIGINAL SIG] Primary Care Provider: TERRI YOUSIF Referrals: TERRI YOUSIF [Other] (Call your doctor after the weekend for follow-up and to get a repeat blood pressure) Activity Restrictions/Additional Instructions: If the problems breathing occurred with medication change, consider going back on your Trelegy until you talk to your doctor after the weekend. Print Language: Burkinan Disposition Disposition: Home, Self Care
[2024-11-21 12:52] LABS: Absolute Lymphocyte Count 2.59 X10^3/uL (0.83-4.51); Absolute Neutrophil Count 8.3 X10^3/uL (2.0-7.7); Basophil# 0.06 X10^3/uL; Basophil% 0.5 % (0-1); Eosinophil# 0.23 X10^3/uL; Eosinophils% 1.9 % (0-5); Hematocrit 37.8 % (37-47); Hemoglobin 12.7 g/dL (12.0-15.0); Lymphocyte # 2.59 X10^3/ul (0.83-4.51); Lymphocyte % 21.9 % (19-41); Mean Corp Hgb Conc 33.6 g/dL (32-36); Mean Corpuscular Volume 89.2 fL (81-99); Mean Platelet Vol. 9.6 fl (6.2-12.0); Monocyte# 0.56 X10^3/uL; Monocyte% 4.7 % (0-10); NRBC Flagged by Analyzer 0 % (0-5); Neutrophil # 8.25 X10^3/uL (2.7-7.7); Neutrophil % 70.1 % (47-70); Platelet Count 318 K/mm3 (150-450); RBC Distribution Width CV 13.2 % (11.6-14.6); RBC Distribution Width SD 43.3 fl (35.1-43.9); Red Blood Count 4.24 M/mm3 (4.2-5.4); White Blood Count 11.8 K/mm3 (4.4-11.0)
[2024-11-21 13:01] LABS: D-Dimer Quantitative (DVT/PE) < 0.27 FEU/ug/m (0.27-0.49)
[2024-11-21 13:11] LABS: Anion Gap 10 (5-15); BUN 15 mg/dL (4-19); BUN/Creat Ratio 19.8 RATIO (10-20); Calcium,Total 9.2 mg/dL (7.6-11.0); Chloride 101 mmol/L (98-108); Creatinine, Serum 0.74 mg/dL (0.70-1.20); EST Glomerular Filtration Rate 104 (>60); Glucose 105 mg/dL (70-99); Sodium Level 138 mmol/L (133-145)
[2024-11-21 13:14] LABS: Pro- Brain NATRIURETIC PEPTIDE < 36 pg/mL (<=450)
[2024-11-21 13:28] LABS: Troponin T High Sensitivity < 6 ng/L (<=14)
[2024-11-21 14:00] VITALS: BP 131/81; PULSE 81; RESP 18; O2SAT 98
[2024-11-21 14:17] VITALS: BP 131/81; PULSE 81; RESP 18; TEMP 36.7; O2SAT 98
== END 2024-11-21 14:19 | disposition home or self-care (01) ==
PROVIDERS: Emergency Provider Emergency Medicine; Visit Provider Emergency Medicine
DX: J45.901 Unspecified asthma with (acute) exacerbation (principal); I10 Essential (primary) hypertension
CPT/HCPCS: 71046; 80048; 83880; 84484; 85025; 85379; 93005; 99283; A4216